=== PATIENT | male | born 2000 | race Two or more races ===

== ENCOUNTER 2020-11-29 22:39 | Emergency (ER) | payer OTHER ==
[~2020-11-29] VITALS: Ht 185.4 cm; Wt 86.2 kg
[2020-11-29 23:28] VITALS: BP 138/74
== END 2020-11-30 00:42 | disposition home or self-care (01) ==
LOC: ER 22:44
DX: S41.111A Laceration without foreign body of right upper arm, initial encounter (principal); T81.30XA Disruption of wound, unspecified, initial encounter; X58.XXXA Exposure to other specified factors, initial encounter; Y93.89 Activity, other specified; Y92.89 Other specified places as the place of occurrence of the external cause; Y99.8 Other external cause status
CPT/HCPCS: 12002